=== PATIENT | male | born 1975 | race Caucasian/White ===

== ENCOUNTER → 2017-05-28 | Outpatient (CLI) | payer OTHER ==
[~2017-05-28] MED LIST: ADDERALL20 MG PO; KEFLEX500 MG PO; LYRICA75 MG PO; METOPROLOL SUCC25 MG PO; OXYCODONE-APAP1 EACH PO; WELLBUTRIN XL150 MG PO; WELLBUTRIN XL300 MG PO
== END | disposition home or self-care (01) ==
LOC: RAD 09:56
DX: Z02.71 Encounter for disability determination (principal); M47.896 Other spondylosis, lumbar region
CPT/HCPCS: 72100